=== PATIENT | male | born 2000 ===

== ENCOUNTER 2020-01-23 15:06 | Emergency (ER) | payer OTHER, SELFPAY ==
[2020-01-23] VITALS (7 sets, daily range): BP systolic 123–129; BP diastolic 66–79; PULSE 58–70; RESP 16–18; TEMP 36.8; O2SAT 95–100; BMI 23.0
--- NOTE | 2020-01-23 15:28 | CTR_ITS ---
PROCEDURE INFORMATION: Exam: CT Abdomen And Pelvis With Contrast Exam date and time: 01/23/2020 3:54 PM Age: 19 years old Clinical indication: Abdominal pain; Generalized; Prior surgery; Surgery type: Bowel jun 2019; Additional info: Abdominal pain, fever TECHNIQUE: Imaging protocol: Computed tomography of the abdomen and pelvis with intravenous contrast. Radiation optimization: All CT scans at this facility use at least one of these dose optimization techniques: automated exposure control; mA and/or kV adjustment per patient size (includes targeted exams where dose is matched to clinical indication); or iterative reconstruction. Contrast material: OMNI 300; Contrast volume: 95 ml; Contrast route: INTRAVENOUS (IV); COMPARISON: CT Abdomen/Pelvis w IV* [id number] 07/09/2019 9:02 PM RADIATION DOSE METRICS: Total DLP (mGy-cm): 618.38 FINDINGS: Liver: Normal. No mass. Gallbladder and bile ducts: Normal. No calcified stones. No ductal dilation. Pancreas: Normal. No ductal dilation. Spleen: Normal. No splenomegaly. Adrenals: Normal. No mass. Kidneys and ureters: Normal. No hydronephrosis. Stomach and bowel: Stable partial right colectomy. One or 2 loops of markedly dilated small bowel in the left abdomen measuring up to the 5.5 cm in diameter with possible transition point in the left upper quadrant, 5 cm proximal to the umbilicus. Severe focal jejunitis versus ileus versus small-bowel obstruction in the region of the mid to distal jejunum. Decompressed colon and small bowel distal to the dilated small bowel. Appendix: No evidence of appendicitis. Intraperitoneal space: Borderline mesenteric adenitis in the central mesentery. Possibly reactive. Vasculature: Unremarkable. No abdominal aortic aneurysm. Lymph nodes: Unremarkable. No enlarged lymph nodes. Bladder: Unremarkable as visualized. Reproductive: Unremarkable as visualized. 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 Soft tissues: Unremarkable. Other findings: Levoscoliosis. CT/CT abdomen pelvis w con* [id number] IMPRESSION: 1. Stable partial right colectomy. 2. One or 2 loops of markedly dilated small bowel in the left abdomen measuring up to the 5.5 cm in diameter with possible transition point in the left upper quadrant, 5 cm proximal to the umbilicus. Severe focal jejunitis versus ileus versus small-bowel obstruction in the region of the mid to distal jejunum. 3. Borderline mesenteric adenitis in the central mesentery. Possibly reactive. 4. Decompressed colon and small bowel distal to the dilated small bowel. Radiation Dose CTDIVOL = (mGy): DLP = 618.38 (mGy-cm)
[2020-01-23] MEDS: sodium chloride 0.9% 1,000 ML 999 ML IV (15:33)
--- NOTE | 2020-01-23 15:43 | ED_ITS ---
HPI - Abdominal Pain General: Chief Complaint: Abdominal Pain Stated Complaint: abd pain Time Seen by Provider: 01/23/20 15:19 History of Present Illness: HPI narrative: This patient is a 19-year-old male presenting with abdominal pain. He started having pain and cramping 2 weeks ago. He had some vomiting for a few days and then symptoms improved. Today the symptoms returned and have been persistent. He continues to have some vomiting. In June he presented with similar symptoms and was diagnosed with a bowel obstruction. He went to the OR in [place] and was found to have a kink in his bowel and had to have about 8 inches of bowel removed. Because of the symptoms that he has been having for the last 2 weeks he saw his surgeon in [place] yesterday. He had an exam in the office and also an ultrasound. Nothing seems to be wrong at that time. He called the surgeon again this afternoon after he threw up and was instructed to come to the ER for a CAT scan. The patient says that his pain is somewhat improved after he threw up at home today. He still having cramping in the upper abdomen in the midline and to the right. MD elicited complaint: abdominal pain Pertinent past history: other (Bowel obstruction) Onset (ago): week(s) (2) Pain Consistency: intermittent Location: Epigastric, LUQ and RUQ Severity: moderate Quality: cramping and sharp Associated Symptoms: Reports GI cramping and vomiting; Denies chills, fever(s) and nausea Review of Systems General: Reports: 10 or more systems reviewed and unremarkable except in HPI and below Const: Denies: fever(s), chills, fatigue or malaise Eyes: Denies: change in vision ENMT: Denies: odynophagia Card: Denies: chest pain or swelling of feet/ankles Resp: Denies: dyspnea, productive cough or non-productive cough GI: Reports: abdominal pain, vomiting and GI cramping; Denies: nausea : Denies: flank pain Musc: Denies: neck pain or back pain Skin/Breast: Denies: rash Neuro: Denies: headache(s), numbness in extremities or weakness in extremities Carlos/Lymph: Denies: easy bruising or easy bleeding Physical Exam Const: COMMON NORMALS: no acute distress, patient oriented x3, no limitations and alert GENERAL APPEARANCE: cooperative and comfortable HENMT: HEAD & SCALP: normal to inspection FACE & SINUS: normal facial exam Eye: GENERAL EYE: appearance normal, both eyes and all related structures Neck/C-Spine: COMMON NORMALS: supple, no meningeal signs and no JVD Chest: COMMONS NORMALS: normal inspection of the chest Resp: COMMON NORMALS: normal respiratory effort, No use of accessory muscles and clear to auscultation bilaterally AUSCULTATION: clear to auscultation bilaterally Cardio: COMMON NORMALS: no JVD, regular rate, regular rhythm and No murmurs present (Cardio) RATE: regular rate RHYTHM: regular rhythm GI: COMMON NORMALS: Normal to inspection, nondistended, normoactive bowel sounds present and non-tender INSPECTION: Yes normal to inspection AUSCULTATION: Yes Hyperactive bowel sounds present PALPATION: Yes Tenderness to palpation present (GI) (mild, diffues) Back/Pelvis: COMMON NORMALS: thoracic and lumbar spine normal to inspection Extremity: COMMON NORMALS: normal to inspection Neuro: COMMON NORMALS: patient oriented x3, moves all extremities, no focal motor deficits and no sensory deficits noted SENSORIUM/ORIENTATION: Yes alert MENINGEAL SIGNS: Yes no meningeal signs Psych: COMMON NORMALS: mental status grossly normal, cooperative and normal affect Skin: COMMON NORMALS: no rashes or lesions noted and turgor normal GENERAL SKIN EXAM: no rashes or lesions noted and turgor normal Course Consultations: Consultation #1: Dr. Urbano. He recommends that the patient should be transferred to [place] for care by his own surgeon Dr. Cote. Patient is okay with that although his would prefer him to be here so that she does not travel. Attempting to contact his surgeon. Consultation #2: I spoke with Dr. Mk Castrejon. He is willing to accept the patient as a direct admission. He requested that I send the patient by private vehicle. I discussed this with the patient and told him that our preference is to send in by ambulance. He wants to go by private vehicle and his is here to drive him. He understands will have to take the IV out and that this is against our recommendation. We will send him with his labs, ER record, CT scan. At this time awaiting a bed assignment from [facility]. Time: 17:55 Vital Signs: Vital signs: Vital Signs Temperature 98.2 F 01/23/20 15:13 Pulse Rate 69 01/23/20 19:14 Respiratory Rate 16 01/23/20 19:48 Blood Pressure 129/77 01/23/20 19:14 Pulse Oximetry 100 01/23/20 19:14 MDM - Abdominal Pain MDM Narrative: Medical decision making narrative: History of bowel obstruction with part of his bowel removed in June. Now with similar symptoms suggestive of a intermittent or partial small bowel obstruction. CT scan, fluids, pain medication although so far he has not wanted any. Lab Data: Labs: Lab Results 01/23/20 01/23/20 01/23/20 Range/Units 15:45 16:17 16:35 WBC 9.9 (4.5-13.0) 10^3/ uL RBC 5.58 H (4.1-5.3) 10^6/u L Hgb 16.2 (11.7-16.6) g/dL Hct 47.6 (42.0-52.0) % MCV 85.3 (80-94) fL MCH 29.0 (28.0-34.0) pg MCHC 34.0 (30.0-36.0) g/dL RDW 11.9 L (12.1-15.1) % Plt Count 282 (130-400) 10^3/c mm MPV 11.7 H (7.4-10.4) fL Neut % (Auto) 69.2 % Lymph % (Auto) 22.3 % Russell % (Auto) 6.4 % Eos % (Auto) 1.4 % Baso % (Auto) 0.5 % Neut # (Auto) 6.84 (1.8-8.0) 10^3/u L Lymph # (Auto) 2.2 (1.5-6.5) 10^3/u L Russell # (Auto) 0.6 (0.2-0.9) 10^3/u L Eos # (Auto) 0.1 (0.0-0.8) 10^3/u L Baso # (Auto) 0.1 (0.0-0.1) 10^3/u L Nucleated RBC % (a uto) 0 % Nucleated RBCs # 0.0 /100WBC Sodium 137 (136-145) mmol/L Potassium 3.6 (3.5-5.1) mmol/L Chloride 100 (98-107) mmol/L Carbon Dioxide 28 (22-29) mmol/L Anion Gap 12.6 (5-19) BUN 10 (6-20) mg/dL Creatinine 0.8 (0.7-1.2) mg/dL GFR Calculation 123.2 (90-130) mL/min Glucose 97 (65-115) mg/dL Calculated Osmolal ity 280 L (285-295) mOsm/k g Lactate (0.5-2.2) mmol/L Calcium 9.6 (8.5-10.5) mg/dL Total Bilirubin 0.4 (0.15-1.2) mg/dL AST 12 (0-40) U/L ALT 9 (0-41) U/L Alkaline Phosphata se 80 (40-130) IU/L Total Protein 6.8 (6.6-8.7) g/dL Albumin 4.4 (3.5-5.2) g/dL Globulin 2.4 (1.3-4.6) g/dL Lipase 15 (13-60) U/L Urine Color Dark yellow (Yellow) Urine Appearance Hazy A (CLEAR) Urine pH 9 H (5-7) Ur Specific Gravit y 1.015 (1.005-1.030) Urine Protein Neg (Negative) Urine Glucose (UA) Norm (Normal) Urine Ketones Negative (Negative) Urine Blood Neg (Negative) Urine Nitrate Negative (Negative) Urine Bilirubin Neg (NEGATIVE) Prot Sulfosalicyli c Acd Negative (Negative) Urine Urobilinogen Norm (Negative) mg/dL Ur Leukocyte Yvette ase Negative (Negative) Urine RBC None (0-2) /hpf Urine WBC Rare (0-5) /hpf Ur Squamous Epith Cells 0-4 H (0-5) Amorphous Sediment 2+ Urine Bacteria Trace (NONE) 01/23/20 Range/Units 17:51 WBC (4.5-13.0) 10^3/ uL RBC (4.1-5.3) 10^6/u L Hgb (11.7-16.6) g/dL Hct (42.0-52.0) % MCV (80-94) fL MCH (28.0-34.0) pg MCHC (30.0-36.0) g/dL RDW (12.1-15.1) % Plt Count (130-400) 10^3/c mm MPV (7.4-10.4) fL Neut % (Auto) % Lymph % (Auto) % Russell % (Auto) % Eos % (Auto) % Baso % (Auto) % Neut # (Auto) (1.8-8.0) 10^3/u L Lymph # (Auto) (1.5-6.5) 10^3/u L Russell # (Auto) (0.2-0.9) 10^3/u L Eos # (Auto) (0.0-0.8) 10^3/u L Baso # (Auto) (0.0-0.1) 10^3/u L Nucleated RBC % (a uto) % Nucleated RBCs # /100WBC Sodium (136-145) mmol/L Potassium (3.5-5.1) mmol/L Chloride (98-107) mmol/L Carbon Dioxide (22-29) mmol/L Anion Gap (5-19) BUN (6-20) mg/dL Creatinine (0.7-1.2) mg/dL GFR Calculation (90-130) mL/min Glucose (65-115) mg/dL Calculated Osmolal ity (285-295) mOsm/k g Lactate 1.0 (0.5-2.2) mmol/L Calcium (8.5-10.5) mg/dL Total Bilirubin (0.15-1.2) mg/dL AST (0-40) U/L ALT (0-41) U/L Alkaline Phosphata se (40-130) IU/L Total Protein (6.6-8.7) g/dL Albumin (3.5-5.2) g/dL Globulin (1.3-4.6) g/dL Lipase (13-60) U/L Urine Color (Yellow) Urine Appearance (CLEAR) Urine pH (5-7) Ur Specific Gravit y (1.005-1.030) Urine Protein (Negative) Urine Glucose (UA) (Normal) Urine Ketones (Negative) Urine Blood (Negative) Urine Nitrate (Negative) Urine Bilirubin (NEGATIVE) Prot Sulfosalicyli c Acd (Negative) Urine Urobilinogen (Negative) mg/dL Ur Leukocyte Yvette ase (Negative) Urine RBC (0-2) /hpf Urine WBC (0-5) /hpf Ur Squamous Epith Cells (0-5) Amorphous Sediment Urine Bacteria (NONE) Discharge Plan Discharge Patient Disposition: Transfer to ED Prescriptions: No Action No Known Home Medications RF: 0 Referrals: Kaleb Booth MD [Primary Care Provider] - Discharge Date/Time: 01/23/20 19:52 Coding Level of Care Code ED [employer] Operator for Chg Fwd Exam Comprehensive
[2020-01-23 15:53] LABS: Basophils # 0.1 10^3/uL (0.0-0.1); Basophils % 0.5 %; Eosinophils # 0.1 10^3/uL (0.0-0.8); Eosinophils % 1.4 %; Hematocrit 47.6 % (42.0-52.0); Hemoglobin 16.2 g/dL (11.7-16.6); Lymphocytes # 2.2 10^3/uL (1.5-6.5); Lymphocytes % 22.3 %; Mean Corpuscular Volume 85.3 fL (80-94); Mean Platelet Volume 11.7 fL (7.4-10.4); Monocytes # 0.6 10^3/uL (0.2-0.9); Monocytes % 6.4 %; Neutrophils # 6.84 10^3/uL (1.8-8.0); Neutrophils % 69.2 %; Nucleated Red Blood Cells % 0 %; Platelet Count 282 10^3/cmm (130-400); Red Blood Count 5.58 10^6/uL (4.1-5.3); Red Cell Distribution Width 11.9 % (12.1-15.1); White Blood Count 9.9 10^3/uL (4.5-13.0)
[2020-01-23] MEDS: iohexol 300 mg/mL 100 mL Btl IV (16:07)
[2020-01-23 16:53] LABS: Alanine Aminotransferase 9 U/L (0-41); Albumin Level 4.4 g/dL (3.5-5.2); Alkaline Phosphatase 80 IU/L (40-130); Anion Gap 12.6 (5-19); Aspartate Amino Transferase 12 U/L (0-40); Blood Urea Nitrogen 10 mg/dL (6-20); Calcium 9.6 mg/dL (8.5-10.5); Carbon Dioxide 28 mmol/L (22-29); Chloride 100 mmol/L (98-107); Globulin 2.4 g/dL (1.3-4.6); Glomerular Filtration Rate 123.2 mL/min (90-130); Glucose 97 mg/dL (65-115); Lipase 15 U/L (13-60); Osmolality Calculated 280 mOsm/kg (285-295); Potassium 3.6 mmol/L (3.5-5.1); Sodium 137 mmol/L (136-145); Total Bilirubin 0.4 mg/dL (0.15-1.2); Total Protein 6.8 g/dL (6.6-8.7)
[2020-01-23 17:30] LABS: Urine Appearance Hazy (CLEAR); Urine Color Dark Yellow (Yellow)
[2020-01-23 17:36] LABS: pH Urine 9 (5-7)
[2020-01-23 17:37] LABS: Add Urine Culture? No; Add Urine Microscopic? YES; Amorphous Sediment Urine 2+; Bacteria Urine TRACE; Bilirubin Urine Neg (NEGATIVE); Blood Urine Neg (Negative); Glucose Urine UA Norm (Normal); Ketones Urine Negative (Negative); Leukocyte Esterase Urine Negative (Negative); Nitrate Urine Negative (Negative); Protein Urine Neg (Negative); Specific Gravity, Urine 1.015 (1.005-1.030); Squamous Epithelial Cell Urine 0-4 (0-5); Sulfosalicylic Acid Urine Negative (Negative); Urobilinogen Urine Norm (Negative); WBC Urine RARE /hpf (0-5)
[2020-01-23] MEDS: ciprofloxacin 400 MG/200 ML PREMIX 200 MG IV (17:37)
[2020-01-23] MEDS: metroNIDAZOLE IV 500 MG/100 ML PREMIX 100 MG IV (17:37)
[2020-01-23] MEDS: ondansetron 2 mg/ML SDV 2 mL 4 MG IVP (17:42)
[2020-01-23] MEDS: morphine 4 mg/mL SDV 1 mL IVP ×2 (17:43→19:48)
== END 2020-01-23 19:52 ==
PROVIDERS: Emergency Provider Emergency Medicine; PCP Family Medicine
DX: R10.9 Unspecified abdominal pain (principal)
CPT/HCPCS: 12345; 36415; 74177; 80053; 81001; 81003; 83605; 83690; 85025; 96365; 96367; 96375; 96376; 99283; 99285; J0744; J2270; J2405; J7030; Q9967; S0030

== ENCOUNTER 2020-03-01 08:25 | Outpatient (REF) | payer SELFPAY ==
[2020-03-01 08:49] LABS: Chol HDL Ratio 1.89 mg/dL (1.0-5.00); Cholesterol 102 mg/dL (0-200); HDL Cholesterol 54 mg/dL (60-100); LDL Cholesterol Calculated 40 mg/dL (50-129); LDL HDL Ratio 0.74 RATIO (0.00-3.22); Triglycerides 39 mg/dL (0-150)
== END 2020-03-01 08:26 | disposition home or self-care (01) ==
LOC: LAB 08:25
PROVIDERS: PCP Family Medicine; Visit Provider Dermatology
DX: Z01.89 Encounter for other specified special examinations (principal)
CPT/HCPCS: 80061